=== PATIENT | male | born 1965 | race Caucasian/White ===

== ENCOUNTER 2017-09-16 07:59 | Day surgery (SDC) | payer OTHER ==
[~2017-09-16] VITALS: Ht 180.3 cm; Wt 156.4 kg
[2017-09-16] MEDS ORDERED: SODIUM CHLORIDE 0.9% 1,000 ML IV ONE ×2 (08:00→08:24)
[2017-09-16] MEDS ORDERED: VITAD50000 PO (09:02)
[2017-09-16] MEDS ORDERED: METF500T6 PO (09:02)
[2017-09-16] MEDS ORDERED: ATOR20TA86 PO (09:02)
[2017-09-16] MEDS ORDERED: FERR-89 PO (09:02)
[2017-09-16] MEDS ORDERED: ASPI-1182 PO (09:02)
[2017-09-16] MEDS ORDERED: GABA-531 PO (09:02)
[2017-09-16] MEDS ORDERED: MET500 PO (09:02)
[2017-09-16] MEDS ORDERED: PIOG30TA10 PO (09:02)
[2017-09-16] MEDS ORDERED: TAMS0.4C32 PO (09:02)
[2017-09-16 09:14] LABS: GLUCOMETER DEV NAME(LOC) SDS 5; GLUCOSE,POINT OF CARE 91 MG/DL (70-110)
[2017-09-16] MEDS ORDERED: FentaNYL CITRATE-PF 100 MCG/2 ML VIAL ONE (09:46)
[2017-09-16] MEDS ORDERED: MIDAZOLAM HCL 5 MG/ML VIAL ONE (09:47)
== END 2017-09-16 11:10 | disposition home or self-care (01) ==
LOC: SURGERY 07:59
PROVIDERS: ATTEND Internal Medicine Gastroenterology
DX: K29.30 Chronic superficial gastritis without bleeding (principal); B96.89 Other specified bacterial agents as the cause of diseases classified elsewhere; I10 Essential (primary) hypertension; G89.29 Other chronic pain; E78.5 Hyperlipidemia, unspecified; E66.9 Obesity, unspecified; E11.9 Type 2 diabetes mellitus without complications; Z87.891 Personal history of nicotine dependence; Z95.5 Presence of coronary angioplasty implant and graft; Z79.891 Long term (current) use of opiate analgesic; Z79.82 Long term (current) use of aspirin; Z68.42 Body mass index [BMI] 45.0-49.9, adult; Z79.84 Long term (current) use of oral hypoglycemic drugs; Z87.898 Personal history of other specified conditions; Z79.899 Other long term (current) drug therapy; Z98.890 Other specified postprocedural states
CPT/HCPCS: 43239; 82962; 88305; 88312; 93005; C1769; J2250; J3010; J7030